=== PATIENT | female | born 1985 | race Caucasian/White ===

== ENCOUNTER 2017-07-30 14:18 | Emergency (ER) | payer OTHER ==
[2017-07-30 14:28] VITALS: BP 100/53; PULSE 94; RESP 18; TEMP 98; O2SAT 98
[2017-07-30] MEDS ORDERED: Naproxen 500 MG TAB PO STA (15:20)
--- NOTE | 2017-07-30 15:50 | RAD ---
PROCEDURE: Right Ankle Radiographs. HISTORY: pain COMPARISON: None FINDINGS: BONES: No acute fracture. JOINTS: Ankle mortise maintained. Talar dome intact SOFT TISSUES: Lateral malleolar soft tissue swelling. OTHER FINDINGS: Small ankle joint effusion. IMPRESSION: Lateral malleolar soft tissue swelling and small ankle joint effusion without demonstrated fracture or dislocation.
[2017-07-30] MEDS ORDERED: Naproxen 500 MG TAB PO ONE (16:18)
--- NOTE | 2017-07-30 18:04 | ED PDOC ---
Lower Extremity Pain/Injury Time Seen by Provider: 07/30/17 15:19 Chief Complaint (Nursing): Lower Extremity Problem/Injury Chief Complaint (Provider): Right Ankle Injury History Per: Patient History/Exam Limitations: no limitations Onset/Duration Of Symptoms: Mins Current Symptoms Are (Timing): Still Present Additional Complaint(s): 32 year old female presents to the ED with complaints of pain to her right ankle beginning prior to arrival. 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 Patient now complains of pain; cannot bear weight on ankle. Otherwise: (-) knee pain, (-) other injury. - Ankle/Foot Description Of Injury: Twisted Currently Unable To: Bear Weight Past Medical History Reviewed: Historical Data, Nursing Documentation, Vital Signs Vital Signs: Last Vital Signs Temp 98 F 07/30/17 14:25 Pulse 94 H 07/30/17 14:25 Resp 18 07/30/17 14:25 BP 100/53 L 07/30/17 14:25 Pulse Ox 98 07/30/17 14:25 - Surgical History Surgical History: No Surg Hx - Family History Family History: States: No Known Family Hx - Home Medications Home Medications: Ambulatory Orders Medication Instructions Recorded Naproxen 500 mg PO BID PRN #20 tablet 07/30/17 - Allergies Allergies/Adverse Reactions: Allergies Allergy/AdvReac Type Severity Reaction Status Date / Time Penicillins Allergy RASH Verified 07/30/17 14:25 Review of Systems ROS Statement: Except As Marked, All Systems Reviewed And Found Negative Musculoskeletal: Positive for: Foot Pain (right ankle) Neurological: Negative for: Weakness, Numbness Physical Exam - Reviewed Nursing Documentation Reviewed: Yes Vital Signs Reviewed: Yes - Physical Exam Comments: GENERAL APPEARANCE: Patient is awake, alert, oriented x 3, in no acute distress. SKIN: Warm, dry; (-) cyanosis. LOWER EXTREMITY: Ankle: moderate swelling to right ankle, tenderness of the medial aspect of the ankle; (+) limited range of motion secondary to pain. Achilles tendon intact and nontender. Knee and foot: (-) injury. CARDIOVASCULAR: (+) distal pulse. NEUROLOGIC: (+) distal sensation. - ECG O2 Sat by Pulse Oximetry: 98 (RA) Pulse Ox Interpretation: Normal Medical Decision Making Medical Decision Making: Impression: Right ankle injury Plan: -- XR right ankle -- Naproxen 500 mg PO Time: 1545 XR Right ankle FINDINGS: BONES: No acute fracture. JOINTS: Ankle mortise maintained. Talar dome intact SOFT TISSUES: Lateral malleolar soft tissue swelling. OTHER FINDINGS: Small ankle joint effusion. IMPRESSION: Lateral malleolar soft tissue swelling and small ankle joint effusion without demonstrated fracture or dislocation. On re-evaluation, patient reports improved pain. Discussed with patient X-ray report and diagnosis of ankle sprain. Instructed patient on RICE method for home care of ankle. Advised to follow up with workman's comp in 1-2 days without fail. Advised to take medication as prescribed. Return to the emergency room at any time for any new or worsening symptoms. Patient states she fully agrees with and understands discharge instructions. States that she agrees with the plan and disposition. Verbalized and repeated discharge instructions and plan. I have given the patient opportunity to ask any additional questions. Scribe Attestation: Documented by Jaky Ji acting as a scribe for CATALINO Ferrell Provider Attestation: All medical record entries made by the Scribe were at my direction and personally dictated by me. I have reviewed the chart and agree that the record accurately reflects my personal performance of the history, physical exam, medical decision making, and the department course for this patient. I have also personally directed, reviewed, and agree with the discharge instructions and disposition. Disposition - Clinical Impression Clinical Impression: Ankle sprain - Patient ED Disposition Is Patient to be Admitted: No Counseled Patient/Family Regarding: Studies Performed, Diagnosis, Need For Followup, Rx Given - Disposition Disposition: Routine/Home Disposition Time: 17:00 Condition: STABLE Additional Instructions: Follow up with workman's comp in 2 days without fail. Take medication. Return to the ER at any time for any new or worsening symptoms. Prescriptions: Naproxen 500 mg PO BID PRN #20 tablet PRN Reason: Pain, Moderate (4-7) Instructions: Ankle Sprain (DC) Forms: [employer] (N[place]ien), [facility] ED School/Work Excuse - PA / DOPEMAN / Resident Statement MD/DO has reviewed & agrees with the documentation as recorded.
== END 2017-07-30 17:33 | disposition home or self-care (01) ==
LOC: H.ER 14:18
DX: S93.401A Sprain of unspecified ligament of right ankle, initial encounter (principal); X50.9XXA Other and unspecified overexertion or strenuous movements or postures, initial encounter; Y99.0 Civilian activity done for income or pay; Z88.0 Allergy status to penicillin

== ENCOUNTER 2018-06-26 09:46 | Emergency (ER) | payer OTHER ==
[2018-06-26 09:46] VITALS: BMI 33.0
[2018-06-26 10:07] VITALS: BP 99/61; PULSE 106; RESP 18; TEMP 98; O2SAT 99
--- NOTE | 2018-06-26 10:38 | ED PDOC ---
Lower Extremity Pain/Injury Time Seen by Provider: 06/26/18 10:04 Chief Complaint (Nursing): Lower Extremity Problem/Injury History Per: Patient History/Exam Limitations: no limitations Onset/Duration Of Symptoms: Hrs Current Symptoms Are (Timing): Still Present Severity: Mild Additional History Per: Patient Additional Complaint(s): Pt. is a 33 y/o Female who was walking home from work this am, about 3 hrs. ago, when she slipped on ice and twisted her right ankle. She has been able to bear weight since but with mild pain. Pt. denies hitting her head or any other injury. - Ankle/Foot Description Of Injury: Fell Past Medical History Reviewed: Historical Data, Nursing Documentation, Vital Signs Vital Signs: Last Vital Signs Temp 98.0 F 06/26/18 10:07 Pulse 106 H 06/26/18 10:07 Resp 18 06/26/18 10:07 BP 99/61 L 06/26/18 10:07 Pulse Ox 99 06/26/18 10:07 - Medical History PMH: Asthma - Family History Family History: States: Unknown Family Hx, Stroke, Diabetes, Hypertension - Home Medications Home Medications: Ambulatory Orders Medication Instructions Recorded Clindamycin [Cleocin] 1 tab PO QID #40 cap 08/08/16 Ibuprofen [Motrin] 600 mg PO Q8 PRN #21 tab 08/08/16 Meclizine [Meclizine*] 1 tab PO Q6 PRN #30 tab 09/21/16 Naproxen 1 tab PO BID PRN #14 tab 11/05/16 traMADol [Ultram] 50 mg PO Q8 PRN #6 tab 11/05/16 Naproxen [Naprosyn] 500 mg PO Q12H #20 tab 07/10/17 Naproxen 500 mg PO BID PRN #20 tablet 07/30/17 Ibuprofen [Motrin Tab] 600 mg PO TID PRN #15 tab 06/26/18 - Allergies Allergies/Adverse Reactions: Allergies Allergy/AdvReac Type Severity Reaction Status Date / Time Penicillins Allergy RASH Verified 06/26/18 10:05 Review of Systems Musculoskeletal: Negative for: Neck Pain Neurological: Negative for: Headache, Dizziness Physical Exam - Physical Exam Appears: Positive for: Well, Non-toxic Head Exam: Positive for: ATRAUMATIC Skin: Positive for: Normal Color, Warm, Dry Eye Exam: Positive for: Normal appearance Extremity: Positive for: Other (RLE: (+) mild swelling and tenderness over lateral malleolus, (-) swelling or tenderness over medial malleolus. (+) Decreased ROM of ankle secondary to pain. Lower leg: (+) mild tenderness over distal fibula, (-) swelling, (-) ecchymosis. Knee, Hip: (-) tenderness, swelling, (+) full painless ROM.) - ECG O2 Sat by Pulse Oximetry: 99 Medical Decision Making Medical Decision Making: U. preg ordered Ankle/Tib/Fib x-rays ordered. Motrin ordered. X-rays reviewed, (-) fx, (-) dislocation U. preg: neg Pt. feeling better, repeat hr 90. Ankle immobilized with tarsha wrap and aircast; good distal perfusion post splinting. Crutches given with instruction. Disposition - Clinical Impression Clinical Impression: Ankle injury - Patient ED Disposition Is Patient to be Admitted: No Counseled Patient/Family Regarding: Studies Performed, Diagnosis, Need For Followup - Disposition Referrals: Otis Plata DPM [Staff Provider] - Disposition: Routine/Home Disposition Time: 11:12 Condition: STABLE Prescriptions: Ibuprofen [Motrin Tab] 600 mg PO TID PRN #15 tab PRN Reason: Pain, Moderate (4-7) Instructions: Ankle Sprain, Ankle Sprain (DC) Forms: [employer] (Thai), [facility] Ex[facility]
--- NOTE | 2018-06-26 12:46 | RAD ---
Date of service: 06/26/2018 PROCEDURE: Radiographs of the right tibia and fibula. HISTORY: trauma COMPARISON: None available TECHNIQUE: Frontal and lateral views obtained. FINDINGS: BONES: No fracture or destructive lesion. JOINT SPACES: Unremarkable. OTHER FINDINGS: None. IMPRESSION: Unremarkable radiographs of the right tibia and fibula.
--- NOTE | 2018-06-26 12:57 | RAD ---
Date of service: 06/26/2018 PROCEDURE: Right Ankle Radiographs. HISTORY: trauma COMPARISON: 07/30/2017 right ankle radiographs FINDINGS: BONES: Normal. No fracture. JOINTS: Normal. No osteoarthritis. Ankle mortise maintained. Talar dome intact SOFT TISSUES: Lateral soft tissue swelling without distal fibular or talar abnormality. Similar findings identified on the prior study 07/30/2017. OTHER FINDINGS: None. IMPRESSION: Soft tissue swelling without acute articular or osseous abnormality.
== END 2018-06-26 11:44 | disposition home or self-care (01) ==
LOC: H.ER 09:46
DX: S99.912A Unspecified injury of left ankle, initial encounter (principal); X50.9XXA Other and unspecified overexertion or strenuous movements or postures, initial encounter; Y92.89 Other specified places as the place of occurrence of the external cause